=== PATIENT | female | born 1970 | race Caucasian/White ===

== ENCOUNTER 2016-08-12 09:33 | Emergency (ER) | payer OTHER ==
--- NOTE | 2016-08-12 13:31 | DIAGNOSTIC IMAGING REPORT ---
PROCEDURE: CT ABDOMEN/PELVIS W/O CONTRAST INDICATION: Right flank pain. History of kidney stones. TECHNIQUE: Noncontrast axial images with sagittal and coronal reformations. COMPARISON: Compared to CT abdomen pelvis on 08/03/2009. FINDINGS: ABDOMEN: Right kidney and ureter are normal. No evidence of right urinary tract calculus. There is a 10 mm nonobstructing calculus in the lower pole left kidney. Left kidney and ureter are otherwise normal. Gallbladder, liver, spleen, pancreas, and aorta are normal. Bowel pattern is normal, including appendix. PELVIS: Uterus and adnexal structures are within normal limits. No evidence of free fluid. No evidence of free fluid. IMPRESSION: 1. No evidence of right-sided urinary tract obstruction or calculus. 2. There is a 10 mm nonobstructing calculus in the lower pole left kidney. 3. Otherwise negative CT abdomen pelvis. 4. Findings discussed with Dr. Destinee Khan. All CT scans at this facility use dose modulation, iterative reconstruction, and/or weight-based dosing when appropriate to reduce radiation dose to as low as reasonably achievable.
--- NOTE | 2016-08-12 13:54 | ED CLINICAL REPORT ---
Clinical Report - Physicians/Mid Levels [facility] [address] [place] [address] 08/12/2016 9:33 Patient: CARY HOWELL Time Seen: 11:20. Arrived- By private vehicle. Historian- patient. HISTORY OF PRESENT ILLNESS Chief Complaint: ABDOMINAL PAIN. At its maximum, severity described as moderate. When seen in the E.D., severity described as moderate. Modifying factors. Not worsened by anything. Not relieved by anything. It is described as "pain". No radiation. It is described as located in the right lower quadrant and right pelvis. This started last night and is still present. The patient has had nausea (with pain only). No loss of appetite, vomiting or diarrhea. Similar symptoms previously: Occasionally. ( Patient has a history of kidney stones and states this feels the same.). Recent medical care: Not recently seen/assessed. REVIEW OF SYSTEMS No constipation, black stools, hematemesis, difficulty with urination or pain with urination. No urinary frequency, bloody stools, headache, sore throat or blurred vision. No chest pain, difficulty breathing, cough, joint pain or skin rash. No chills. Denies current . The patient has had fever (Yesterday, measured 101). She has had back pain (pain last night was more back pain; however this morning it is only in the right lower quadrant.). All systems otherwise negative, except as recorded above. PAST HISTORY Problems: Dental Pain. Anxiety Reaction. Cancer. Depression. Diabetes Mellitus. Immunizations. Additional Surgeries: Dental Surgery. Lithotripsy. Medications: None. Allergies: Hydrocodone.(vomiting). SOCIAL HISTORY Smoker- current status unknown. Occasional alcohol use. No drug use. ADDITIONAL NOTES The nursing notes have been reviewed. PHYSICAL EXAM Vital Signs: 08/12/2016 09:56 BP: 190/92. HR: 107. RR: 15. O2 saturation: 98%. Temp: 98.7 F. Have been reviewed. Appearance: Alert. Oriented X3. No acute distress. (Patient appears moderately uncomfortable.). Eyes: Pupils equal, round and reactive to light. Eyes normal inspection. ENT: Nose normal. Neck: Normal inspection. CVS: Normal heart rate and rhythm. Heart sounds normal. Pulses normal. Respiratory: No respiratory distress. Breath sounds normal. Abdomen: Soft. Moderate tenderness in the right lower quadrant. No guarding or rebound tenderness. Back: Normal inspection. No CVA tenderness. Skin: Skin warm and dry. Normal skin color. No rash. Normal skin turgor. Extremities: Extremities exhibit normal ROM. No lower extremity edema. Neuro: No motor deficit. No sensory deficit. (Grossly oriented.). LABS, X-RAYS, AND EKG Abdominal CT: Normal study. Normal aorta. Normal liver, spleen, pancreas, gallbladder and adrenals. A single urinary calculus is present in the left kidney. Bladder normal. Appendix normal. No mass. No free fluid. No bony lesion. No diverticulitis. Study type: renal stone evaluation; abdomen and pelvis. Abdominal CT performed without contrast. The study was independently viewed by me, interpreted by the radiologist and contemporaneously by me and discussed with the radiologist. Prior studies were not available for comparison. Laboratory Tests: UA-Culture if indicated: (MELLY: 08/12/2016 09:55) ( MsgRcvd 08/12/2016 10:13) Final results Test Result Flag Units (Reference) URINE COLOR YELLOW URINE APPEARANCE SL CLOUDY URINE GLUCOSE NEGATIVE (NEGATIVE) URINE BILIRUBIN NEGATIVE (NEGATIVE) URINE KETONE NEGATIVE (NEGATIVE) URINE SPECIFIC GRAVITY 1.015 (1.010-1.030) URINE PH 7.0 (5.0-8.0) URINE PROTEIN TRACE (NEGATIVE) URINE UROBILINOGEN 1.0 EU/dL (0.2-1.0) URINE NITRITE POSITIVE (NEGATIVE) URINE BLOOD TRACE-INTACT (NEGATIVE) URINE LEUK ESTERASE POSITIVE (NEGATIVE) URINE RBC 1-3 rbc/hpf (0-1) URINE WBC 15-25 wbc/hpf (0-1) URINE EPITHELIAL CELLS 0-1 EPI/hpf (0-5) URINE BACTERIA MODERATE (2+ TO 3+) (NONE SEEN) URINE COMMENT CULTURE INDICATED URINE CULTURES ARE SET-UP BASED ON THE FOLLOWING CRITERIA:POSITIVE NITRITEPOSITIVE LEUKOCYTE ESTERASEGREATER THAN 10 WHITE BLOOD CELLSMODERATE (2+) OR GREATER BACTERIA Urine: (MELLY: 08/12/2016 09:55) ( [facility] 08/12/2016 11:06) Final results Test Result Flag Units (Reference) URINE NEGATIVE CBC w Diff: (MELLY: 08/12/2016 10:20) ( [facility] 08/12/2016 11:32) Final results Test Result Flag Units (Reference) WHITE BLOOD COUNT 10.6 K/uL (4.5-11.5) RED BLOOD COUNT 4.92 M/uL (4.00-5.20) HEMOGLOBIN 10.0 L gm/dL (12.0-16.0) HEMATOCRIT 31.3 L % (36.0-46.0) MEAN CELL VOLUME 64 L fL (80-100) MEAN CORPUSCULAR HGB 20 L pg (26-34) MEAN CORPUSCULAR HGB CONC 32 g/dL (31-37) RED CELL DISTRIBUTION WIDTH 20.9 H % (11.6-14.8) PLATELET COUNT 296 K/uL (150-400) NEUTROPHIL % 65.2 % (50-75) LYMPH % 26.0 % (25-40) MONO % 6.6 % (3-14) EOSINOPHIL % 0.9 % (0-4) BASOPHIL % 1.3 % (0-2) RBC MORPHOLOGY 2+ MICROCYTOSIS~~2+ HYPOCHROMIA~~2+ ANISOCYTOSIS CMP: (MELLY: 08/12/2016 10:20) ( [facility] 08/12/2016 11:28) Final results Test Result Flag Units (Reference) GLUCOSE 164 H mg/dL (70-110) BUN 10 mg/dL (7-18) CREATININE 0.8 mg/dL (0.6-1.3) Estimated GFR >60 mL/min Estimated GFR- >60 mL/min Note: Persistent reduction over 3 months in eGFR<60 mL/min/1.73 m2 defines CKD. Patients with eGFR values>=60 mL/min/1.73 m2 may also have CKD if evidence ofpersistent proteinuria. Additional information may be foundat www.kidney.org. SODIUM 138 mmol/L (136-145) POTASSIUM 3.5 mmol/L (3.5-5.1) CHLORIDE 102 mmol/L (98-107) CARBON DIOXIDE 25 mmol/L (21-32) CALCIUM 7.8 L mg/dL (8.5-10.1) TOTAL PROTEIN 7.5 g/dL (6.4-8.2) ALBUMIN 3.2 L g/dL (3.3-5.0) BILIRUBIN, TOTAL 0.2 mg/dL (0.0-1.0) ALKALINE PHOSPHATASE 114 U/L (46-116) AST (SGOT) 12 L U/L (15-37) ALT (SGPT) 18 U/L (12-78) . Pulse Oximetry: 08/12/2016 09:56 O2 saturation: 98%. (FIO2 - room air). Interpretation: normal. PROGRESS AND PROCEDURES Course of Care: Patient was given IV fluid, Toradol, and Dilaudid, for symptomatic relief. Her urine was strongly positive for infection so she was given an oral dose of Levaquin. She was also worked up with a CT scan of the abdomen and pelvis without contrast, given her history of kidney stones, as well as the right lower quadrant pain and the need to rule out appendicitis. CT was done and was found to be unremarkable. Patient counseled in person regarding the patient's stable condition, test results, diagnosis and need for follow-up. Concerns were addressed. Old medical records reviewed. Disposition: Discharged. Condition: stable and improved. CLINICAL IMPRESSION Acute urinary tract infection with cystitis. Possible acute pyelonephritis. INSTRUCTIONS Drink plenty of fluids. Warnings: SEDATIVE MEDICATION: You were given sedative medication during your visit. Do not drive or operate dangerous machinery for 6 hours. GENERAL WARNINGS: Return or contact your physician immediately if your condition worsens or changes unexpectedly, if not improving as expected, or if other problems arise. Prescription Medications: Levaquin 500 mg: take 1 tab orally every day for 10 days. No refills. Substitution is permissible. Percocet 5 mg/325 mg: take 1-2 tablets orally every 6 hours as needed for pain. Dispense ten (10). No refill. Substitution is permissible. Follow-up: Follow up with your doctor in ten days if not better. Understanding of the discharge instructions verbalized by patient. (Electronically signed by Erin, Destinee, MD 08/12/2016 22:38)
--- NOTE | 2016-08-12 13:55 | ED ORDER SUMMARY ---
..... Patient: CARY HOWELL OrderSheet [facility] VisitID: [id number] [address] [place] [address] 45y, F Registration Date/Time: 08/12/2016 ORDER SHEET Weight: 113.3 kg (stated) Allergies: Hydrocodone GENERAL ORDERS: UA-Culture if indicated Urgent (09:59 08/12/2016 ASchmuck per protocol) (9:59 PWeiler ER Tech1) CBC w Diff Urgent (10:51 08/12/2016 ASchmuck per protocol) (10:56 KHoerner) CMP Urgent (10:51 08/12/2016 ASchmuck per protocol) (10:56 KHoerner) Urine Urgent (10:59 08/12/2016 ASchmuck per protocol) (11:01 KHoerner) CT Abd/Pel wo Cont Urgent (12:13 08/12/2016 Neymar MALDONADO) (Ack 12:14 KHoerner) (12:28 KHoerner) MEDICATION ORDERS: Levaquin PO 500 mg (NOW) (12:45 08/12/2016 Neymar MALDONADO) (Ack 12:58 ASchmuck) (13:02 ASchmuck) IV FLUIDS: IV NS : initial bolus 1000 mL (1000 mL/hr), then none - (NOW) (12:13 08/12/2016 Neymar MALDONADO) (12:30 ASchmuck) Toradol IV 30 mg (NOW) (12:13 08/12/2016 Neymar MALDONADO) (12:31 ASchmuck) Dilaudid IV 1 mg (HIGH ALERT MEDICATION, NOW) (12:13 08/12/2016 Neymar MALDONADO) (12:31 ASchmuck) ORDER SHEET NOTES: [Electronically signed by Anastasia Busch (14:06 08/12/2016)] [Electronically signed by Destinee Khan MD (22:38 08/12/2016)] [Electronically locked/signed by Anastasia Busch (14:06 08/12/2016)]
--- NOTE | 2016-08-12 13:55 | ED NURSING NOTES ---
Clinical Report - [facility] [address] [place] [address] 08/12/2016 9:33 Patient: CARY HOWELL TRIAGE Triage time 09:47 Jens 11 2016. Acuity: LEVEL 3. Chief Complaint: ABDOMINAL PAIN. 09:56 08/12/16. Alert. No acute distress. SEPSIS SCREEN: Sepsis Screen. Negative (no infection suspected/documented). MESHA COMA SCORE: Mesha Coma Scale: 15- eyes open spontaneously (4); best verbal response- oriented x 4 (5); best motor response- obeys commands (6). --09:56 Anastasia Busch 09:56 08/12/16. BP: 190/92. HR: 107. RR: 15. O2 saturation: 98%. Temp: 98.7 F. Pain level now 8/10. --09:56 Anastasia Busch. Weight: 113.3 kg stated. Height/Length: 68 inches Per Patient. BMI: 38. --09:53 Anastasia Busch. Medications None. --09:48 Anastasia Busch. Medication/allergy information source: the patient. --09:56 Anastasia Busch. Allergies Hydrocodone.(vomiting) --09:54 Anastasia Busch The following entry was struck by Anastasia Busch, 09:54 (08/12/16) Reason - other. <<STRICKEN ENTRY-- No Known Drug Allergy. --09:48 Anastasia Busch --END STRIKE>>. History Arrived by private vehicle. Historian: patient. Accompanied by family. No primary care physician. This started last night. ( Pt reports painful urination and frequency. Pt states that it started similar to menstrual cramps and got "significantly worse" over the night. Has a history of kidney problems, including infections and stones.). She has had nausea and abdominal pain. She has had fever of 101.2 F. No vomiting, diarrhea or constipation. Treatment DIRECTOR OF PATIENT FINANCIAL SERVICES: None. PAST MEDICAL HX: No history of diabetes mellitus. No history of gastroesophageal reflux disease, peptic ulcer disease or gallstones. Immunizations: up-to-date. Last normal menstrual period was 2 weeks ago. SOCIAL HX: Light tobacco smoker (cigarette)- less than 1/2 a pack per day. Occasional alcohol use. No drug use. No recent travel. No known contact with a sick individual. FALL RISK ASSESSMENT: Fall risk assessment completed. No fall risk identified. NUTRITIONAL RISK ASSESSMENT: The nutritional risk assessment revealed no deficiencies. FUNCTIONAL ASSESSMENT: Functional assessment: no impairments noted. LEARNING NEEDS ASSESSMENT: The learning needs assessment revealed no barriers. SKIN INTEGRITY ASSESSMENT: Skin integrity risk assessment completed. No skin integrity risk identified. --09:56 Anastasia Busch. PROBLEMS: Sprain. Abrasion(s). Dental Pain. Anxiety Reaction. Cancer. Depression. Diabetes Mellitus. --09:48 Anastasia Busch. ADDITIONAL SURGERIES: Dental Surgery. Lithotripsy. --09:48 Anastasia Busch. Assessment The patient states feels the same. --09:56 Anastasia Busch. Interventions ID band on patient. Ambulatory by hospital staff. --09:56 Anastasia Busch. PHYSICAL ASSESSMENT 09:57 08/12/16. Ambulatory to room. Patient gowned. GENERAL / NEURO / PSYCH: Alert. Oriented X 4. Appears in pain. HEENT: Mucous membranes are pink. RESPIRATORY: Respirations not labored. CVS: Capillary refill less than 2 seconds. GI / : The patient has had nausea. Abdomen soft. Abdominal tenderness in the right lower quadrant. ( Flank pain, R side). SKIN: Skin is warm and dry. --09:57 Anastasia Busch. NURSING PROGRESS NOTES 09:57 08/12/16. Patient ID band checked for patient name and birthdate: patient confirmed. Instructions provided to collect clean catch urine and patient verbalized understanding. Clean catch urine collected with return of yellow-colored cloudy urine; odor is normal; sample sent to lab. Specimen labeled in the presence of the patient. --10:52 Anastasia Busch 09:57 08/12/16. The plan of care for this patient has been created. Pulse oximeter and NIBP monitor placed on patient; monitor alarms on. Patient gowned. Head of bed elevated. Reassurance given. Two patient identifiers checked. Call light placed in reach. Side rails up x 1. Bed placed in lowest position. Brakes of bed on. Patient ready for evaluation- chart flagged and ED physician notified. --09:57 Anastasia Busch 10:20 08/12/2016 Site #1 started via IV in the right antecubital space with an 22g angiocath, with aseptic technique and good blood return; two attempts. Blood drawn: rainbow set. Labeled in the presence of the patient and sent to the lab. Saline lock flushed with 10 mL saline. --10:29 Brayan Barron R.N. 11:07 08/12/16. BP: 177/85. HR: 84. Temp: 97 F. --11:07 Anastasia Busch 10:45 08/12/16. ( Warm blanket provided to patient along with additional blanket to place over stomach.). --11:07 Anastasia Busch 12:30 08/12/2016 Started bag #1 1000 mL IV Fluids IV NS (Saline); at 1000 mL/hr over 1 hour(s) via site #1 via IV pump. Allergies verified and confirmed 5 rights. IV patency established. IV site checked: no pain, redness, or swelling. IV flushed thoroughly pre- and post-medication administration. --12:30 Anastasia Busch 12:30 08/12/16. BP: 161/81. HR: 87. RR: 16. O2 saturation: 99%. Pain level now 9/10. --12:30 Anastasia Busch 12:08/12/2016 Toradol IVP 30 mg given over 1 minute(s) via site #1. Allergies verified and confirmed 5 rights. IV patency established. IV site checked: no pain, redness, or swelling. IV flushed thoroughly pre- and post-medication administration. IVP given by RN. --12:31 Anastasia Busch 12:08/12/2016 Dilaudid (HYDROmorphone HCl PF) IVP 1 mg given over 30 second(s) via site #1. Allergies verified, confirmed 5 rights and sedative warning given to the patient. IV patency established. IV site checked: no pain, redness, or swelling. IV flushed thoroughly pre- and post-medication administration. IVP given by RN. --12:31 Anastasia Busch 12:32 08/12/16. Patient transported to radiology by stretcher with tech. (12:32 Aug 12 2016). --12:32 Anastasia Busch 13:02 08/12/2016 Levaquin (Levofloxacin) PO Tablets 500 mg given. Allergies verified and confirmed 5 rights. --13:02 Anastasia Busch 13:08/12/16. Pain level now 03/13. --13:09 Anastasia Busch 13:08/12/16. Reassessment after medication administered. She is calm and resting quietly. Overall patient status is improved- she states feels better. --13:09 Anastasia Busch 13:33 08/12/2016 IV Fluids IV NS Discontinued: bag #1 infused. Total amount infused: 1000 mL. IV patency established. IV site checked: no pain, redness, or swelling. IV flushed thoroughly. --14: Anastasia Busch 14:08/12/2016 Site #1 removed upon discharge. Catheter intact. Pressure dressing applied. --14: Anastasia Busch. DISPOSITION / DISCHARGE 14:08/12/16. Departure time: 14:Aug 12 2016. Condition at departure: improved. The goals identified in the patient's plan of care were met. No learning barriers present. Discharge instructions provided and reviewed with the patient. Reviewed warnings (Patient verbalized understanding of sedation warning. Also verbalized awareness of warning s/sx listed in dc paperwork.). Reviewed medication(s) side effects, precautions, dosing and course information. Prescription(s) given to the patient (Levaquin, oxycodone). Treatments reviewed. Reviewed referral to a primary care physician for followup. Patient verbalized understanding. Written instructions provided in [place]. The patient was discharged by the physician. She was discharged home and accompanied by certified coding specialist. She left the Emergency Department ambulatory and via private vehicle. Orthopedic Specialist driving. FALL RISK ASSESSMENT: Fall risk assessment completed. No fall risk identified. --14: Anastasia Busch 14:08/12/16. BP: 177/90. HR: 79. RR: 15. O2 saturation: 94% on room air. Temp: 98.3 F. Pain level now: 03/13. --14:05 Anastasia Busch. Locked/Released at 08/12/2016 14:06 by Anastasia Busch,
--- NOTE | 2016-08-12 13:55 | ED ORDER SUMMARY ---
..... Patient: CARY HOWELL OrderSheet [facility] VisitID: [id number] [address] [place] [address] 45y, F Registration Date/Time: 08/12/2016 ORDER SHEET Weight: 113.3 kg (stated) Allergies: Hydrocodone GENERAL ORDERS: UA-Culture if indicated Urgent (09:59 08/12/2016 ASchmuck per protocol) (9:59 PWeiler ER Tech1) CBC w Diff Urgent (10:51 08/12/2016 ASchmuck per protocol) (10:56 KHoerner) CMP Urgent (10:51 08/12/2016 ASchmuck per protocol) (10:56 KHoerner) Urine Urgent (10:59 08/12/2016 ASchmuck per protocol) (11:01 KHoerner) CT Abd/Pel wo Cont Urgent (12:13 08/12/2016 Neymar MALDONADO) (Ack 12:14 KHoerner) (12:28 KHoerner) MEDICATION ORDERS: Levaquin PO 500 mg (NOW) (12:45 08/12/2016 Neymar MALDONADO) (Ack 12:58 ASchmuck) (13:02 ASchmuck) IV FLUIDS: IV NS : initial bolus 1000 mL (1000 mL/hr), then none - (NOW) (12:13 08/12/2016 Neymar MALDONADO) (12:30 ASchmuck) Toradol IV 30 mg (NOW) (12:13 08/12/2016 Neymar MALDONADO) (12:31 ASchmuck) Dilaudid IV 1 mg (HIGH ALERT MEDICATION, NOW) (12:13 08/12/2016 Neymar MALDONADO) (12:31 ASchmuck) ORDER SHEET NOTES: [Electronically signed by Anastasia Busch (14:06 08/12/2016)] [Electronically signed by Destinee Khan MD (22:38 08/12/2016)] [Electronically locked/signed by Anastasia Busch (14:06 08/12/2016)]
--- NOTE | 2016-08-12 22:38 | ED MED RECONCILIATION SUMMARY ---
Patient: CARY HOWELL Medication Reconciliation Report [facility] VisitID: [id number] [address] [place] [address] 45y, F Registration Date/Time: 08/12/2016 Weight: 113.3 kg Height/Length: 68 in. BMI: 38.0 ALLERGIES: Hydrocodone The patient's Home Medications are listed below: NONE. The source(s) of the original Home Medication information: patient The following Medications were given to the patient in the Emergency Department: IV NS IV Fluids bolus 0, then 1000 mL/hr, administered: 08/12/2016 12:30:00 PM Toradol [IVP] IVP 30 mg, administered: 08/12/2016 12:31:00 PM Dilaudid [IVP] IVP 1 mg, administered: 08/12/2016 12:31:00 PM Levaquin [PO] PO 500 mg, administered: 08/12/2016 1:02:00 PM The following Medications were prescribed to the patient: Levaquin 500 mg: take 1 tab orally every day for 10 days. No refills. Substitution is permissible. -- Destinee Khan MD Percocet 5 mg/325 mg: take 1-2 tablets orally every 6 hours as needed for pain. Dispense ten (10). No refill. Substitution is permissible. -- Destinee Khan MD
--- NOTE | 2016-08-12 22:38 | ED MAR SUMMARY ---
..... Medication Administration Record [facility] [address] [place] [address] Patient: CARY HOWELL Visit ID: [id number] 45y, F Weight: 113.3 kg Height/Length: 68 in BMI: 38 ALLERGIES: Hydrocodone Start 12:30 08/12/2016 Anastasia Busch,, Stop 13:33 08/12/2016 Anastasia Busch, Medication Administered: IV NS (SALINE), Dose: IV Fluids over 1 hour(s), Rate: 1000 mL/hr, Dispensed: 1000 mL bag, Site: #1 right AC. Medication Ordered: IV NS : initial bolus 1000 mL (1000 mL/hr), then none - (NOW). Given 12:08/12/2016 Anastasia Busch, Medication Administered: TORADOL [IVP], Dose: 30 mg IVP over 1 minute(s), Site: #1 right AC. Medication Ordered: Toradol IV 30 mg (NOW). Given 12:08/12/2016 Anastasia Busch, Medication Administered: DILAUDID [IVP] (HYDROMORPHONE HCL PF), Dose: 1 mg IVP over 30 second(s), Site: #1 right AC. Medication Ordered: Dilaudid IV 1 mg (HIGH ALERT MEDICATION, NOW). Given 13:08/12/2016 Anastasia Busch, Medication Administered: LEVAQUIN [PO] (LEVOFLOXACIN), Dose: 500 mg Tablets PO. Medication Ordered: Levaquin PO 500 mg (NOW).
--- NOTE | 2016-08-12 22:38 | ED MED RECONCILIATION SUMMARY ---
Patient: CARY HOWELL Medication Reconciliation Report [facility] VisitID: [id number] [address] [place] [address] 45y, F Registration Date/Time: 08/12/2016 Weight: 113.3 kg Height/Length: 68 in. BMI: 38.0 ALLERGIES: Hydrocodone The patient's Home Medications are listed below: NONE. The source(s) of the original Home Medication information: patient The following Medications were given to the patient in the Emergency Department: IV NS IV Fluids bolus 0, then 1000 mL/hr, administered: 08/12/2016 12:30:00 PM Toradol [IVP] IVP 30 mg, administered: 08/12/2016 12:31:00 PM Dilaudid [IVP] IVP 1 mg, administered: 08/12/2016 12:31:00 PM Levaquin [PO] PO 500 mg, administered: 08/12/2016 1:02:00 PM The following Medications were prescribed to the patient: Levaquin 500 mg: take 1 tab orally every day for 10 days. No refills. Substitution is permissible. -- Destinee Khan MD Percocet 5 mg/325 mg: take 1-2 tablets orally every 6 hours as needed for pain. Dispense ten (10). No refill. Substitution is permissible. -- Destinee Khan MD
--- NOTE | 2016-08-12 22:38 | ED DISCHARGE INSTRUCTIONS ---
Patient: CARY HOWELL General Instructions [facility] VisitID: [id number] [place] [address] 45y, F Registration Date/Time: 08/12/2016 Acute urinary tract infection with cystitis. INSTRUCTIONS Drink plenty of fluids. Warnings: SEDATIVE MEDICATION: You were given sedative medication during your visit. Do not drive or operate dangerous machinery for 6 hours. GENERAL WARNINGS: Return or contact your physician immediately if your condition worsens or changes unexpectedly, if not improving as expected, or if other problems arise. Prescription Medications: Levaquin 500 mg: take 1 tab orally every day for 10 days. No refills. Substitution is permissible. Percocet 5 mg/325 mg: take 1-2 tablets orally every 6 hours as needed for pain. Dispense ten (10). No refill. Substitution is permissible. Follow-up: Follow up with your doctor in ten days if not better. Understanding of the discharge instructions verbalized by patient. ADDITIONAL INFORMATION Bladder Infection,Female (Adult) A bladder infection ("cystitis" or "UTI") usually causes a constant urge to urinate and a burning when passing urine. Urine may be cloudy, smelly or dark. There may be pain in the lower abdomen. A bladder infection occurs when bacteria from the vaginal area enter the bladder opening (urethra). This can occur from sexual intercourse, wearing tight clothing, dehydration and other factors. Home Care: Drink lots of fluids (at least 6-8 glasses a day, unless you must restrict fluids for other medical reasons). This will force the medicine into your urinary system and flush the bacteria out of your body. Avoid sexual intercourse until your symptoms are gone. Avoid caffeine, alcohol and spicy foods. These can irritate the bladder. A bladder infection is treated with antibiotics. You may also be given Pyridium (generic = phenazopyridine) to reduce the burning sensation. This medicine will cause your urine to become a bright orange color. The orange urine may stain clothing. You may wear a pad or panty-liner to protect clothing. Preventing Future Infections: Always wipe from front to back after a bowel movement. Keep the genital area clean and dry. Drink plenty of fluids each day to avoid dehydration. Both sexual partners should wash before intercourse. Urinate right after intercourse to flush out the bladder. Wear cotton underwear and cotton-lined panty hose; avoid tight-fitting pants. If you are on control pills and are having frequent bladder infections, discuss with your doctor. Follow Up: Return to this facility or see your doctor if ALL symptoms are not gone after three days of treatment. Get Prompt Medical Attention if any of the following occur: Fever of 100.4F (38C) or higher, or as directed by your healthcare provider No improvement by the third day of treatment Increasing back or abdominal pain Repeated vomiting; unable to keep medicine down Weakness, dizziness or fainting Vaginal discharge Pain, redness or swelling in the labia (outer vaginal area) You have been given the following additional information: Bladder Infection, Female (Adult) (Electronically signed by Destinee Khan MD 08/12/2016 22:38)
--- NOTE | 2016-08-12 22:38 | ED MAR SUMMARY ---
..... Medication Administration Record [facility] [address] [place] [address] Patient: CARY HOWELL Visit ID: [id number] 45y, F Weight: 113.3 kg Height/Length: 68 in BMI: 38 ALLERGIES: Hydrocodone Start 12:30 08/12/2016 Anastasia Busch,, Stop 13:33 08/12/2016 Anastasia Busch, Medication Administered: IV NS (SALINE), Dose: IV Fluids over 1 hour(s), Rate: 1000 mL/hr, Dispensed: 1000 mL bag, Site: #1 right AC. Medication Ordered: IV NS : initial bolus 1000 mL (1000 mL/hr), then none - (NOW). Given 12:08/12/2016 Anastasia Busch, Medication Administered: TORADOL [IVP], Dose: 30 mg IVP over 1 minute(s), Site: #1 right AC. Medication Ordered: Toradol IV 30 mg (NOW). Given 12:08/12/2016 Anastasia Busch, Medication Administered: DILAUDID [IVP] (HYDROMORPHONE HCL PF), Dose: 1 mg IVP over 30 second(s), Site: #1 right AC. Medication Ordered: Dilaudid IV 1 mg (HIGH ALERT MEDICATION, NOW). Given 13:08/12/2016 Anastasia Busch, Medication Administered: LEVAQUIN [PO] (LEVOFLOXACIN), Dose: 500 mg Tablets PO. Medication Ordered: Levaquin PO 500 mg (NOW).
== END 2016-08-12 14:05 | disposition home or self-care (01) ==
LOC: ED SRH 09:33
DX: N30.00 Acute cystitis without hematuria (principal); E11.9 Type 2 diabetes mellitus without complications; Z88.5 Allergy status to narcotic agent
CPT/HCPCS: 90004; 90100; 90148; 90469; 93070; 95059